=== PATIENT | male | born 1985 | race Caucasian/White ===

== ENCOUNTER 2016-12-13 20:35 | Emergency (ER) | payer OTHER ==
[~2016-12-13] VITALS: Ht 185.4 cm; Wt 102.5 kg
[2016-12-13 22:52] VITALS: BP 135/77
== END 2016-12-13 22:52 | disposition home or self-care (01) ==
LOC: ED 20:35
DX: S60.221A Contusion of right hand, initial encounter (principal); W22.8XXA Striking against or struck by other objects, initial encounter; Y93.89 Activity, other specified; Y92.89 Other specified places as the place of occurrence of the external cause; Y99.8 Other external cause status
CPT/HCPCS: A4570